=== PATIENT | female | born 1960 | race Caucasian/White ===

== ENCOUNTER → 2017-09-03 | Outpatient (CLI) | payer OTHER ==
[~2017-09-03] MED LIST: LEVOTHROID; MULTIVITAMINS; NORCO 5-325 TA1 EACH PO; PREMARIN0.9 MG PO
--- NOTE | 2017-09-03 14:56 | 2DMMODE ---
[place] [address] 2 D/M-MODE ECHOCARDIOGRAM Name: BULMARO SANDERS Room: [facility]#: [id number] Admission: 09/03/17 Attend Phys: Gregg Magana, Discharge: Date of : 56 Date of Service: 09/03/17 1455 Report #: [id number] THIS REPORT FOR: //name// APPROVED REPORT Study performed: 09/03/2017 13:16:45 EXAM: Comprehensive 2D, Doppler, and color-flow Echocardiogram Patient Location: Out-Patient Status: routine BSA: 2.06 HR: 90 bpm BP: 110/62 mmHg Other Information Study Quality: Good Indications Murmur 2D Dimensions LVEF(%): 56.07 (>50%) IVSd: 11.58 (7-11mm) LVOT Diam: 20.67 (18-24mm) LVDd: 42.50 mm PWd: 11.58 (7-11mm) Ascending Ao: 27.56 (22-36mm) LVDs: 30.18 (25-40mm) Aortic Root: 25.46 mm Hartman's LVEF: 56.07 % Volumes Left Atrial Volume (Systole) LA ESV Index: 10.70 mL/m2 Aortic Valve AoV Peak Ishmael.: 1.25 m/s AO Peak Gr.: 6.22 mmHg LVOT Max P.75 mmHg AO Mean Gr.: 3.75 mmHg LVOT Mean P.41 mmHg LVOT Max V: 0.83 m/s AO V2 VTI: 22.53 cm LVOT Mean V: 0.54 m/s CORBIN (VTI): 2.39 cm2 LVOT V1 VTI: 16.03 cm Mitral Valve E/A Ratio: 0.81 MV Decel. Time: 263.14 [place] [address] 2 D/M-MODE ECHOCARDIOGRAM Name: BULMARO SANDERS Room: [facility]#: [id number] Admission: 09/03/17 Attend Phys: Gregg Magana, Discharge: Date of : 56 Date of Service: 09/03/17 1455 Report #: [id number] MV E Max Ishmael.: 0.66 m/s MV PHT: 76.31 ms MVA (PHT): 2.88 cm2 TDI E/Lateral E': 5.08 E/Medial E': 6.60 Medial E' Ishmael.: 0.10 m/s Lateral E' Ishmael.: 0.13 m/s Pulmonary Valve PV Peak Ishmael.: 1.24 m/s PV Peak Gr.: 6.19 mmHg Tricuspid Valve TR Peak Gr.: 16.47 mmHg RVSP: 21.47 mmHg Left Ventricle The left ventricle is normal size. There is normal LV segmental wall motion. Mild concentric left ventricular hypertrophy. Left ventricular systolic function is normal. The left ventricular ejection fraction is within the normal range. LVEF is 55-60%. Grade I - abnormal relaxation pattern. Right Ventricle The right ventricle is normal size. The right ventricular systolic function is normal. Atria The left atrium size is normal. The right atrium size is normal. Aortic Valve The aortic valve is normal in structure. No aortic regurgitation is present. There is no aortic valvular stenosis. Mitral Valve The mitral valve is normal in structure. There is no mitral valve regurgitation noted. No evidence of mitral valve stenosis. Tricuspid Valve The tricuspid valve is normal in structure. Mild tricuspid regurgitation. The RVSP is _21.5 mmHg. Pulmonic Valve The pulmonary valve is normal in structure. There is no pulmonic [place] [address] 2 D/M-MODE ECHOCARDIOGRAM Name: BULMARO SANDERS Room: [facility]#: [id number] Admission: 09/03/17 Attend Phys: Gregg Magana, Discharge: Date of : 56 Date of Service: 09/03/17 1455 Report #: [id number] Great Vessels The aortic root is normal in size. IVC is normal in size and collapses with >50% inspiration Pericardium There is no pericardial effusion. <Conclusion> Mild concentric left ventricular hypertrophy. LVEF is 55-60%. <ELECTRONICALLY SIGNED> By: Adalberto Elena MD, FACC 09/03/17 1455 1455 1455 Adalberto Elena MD, FACC /INF
== END ==
LOC: M.CRD 13:00
DX: I51.7 Cardiomegaly (principal)

== ENCOUNTER → 2018-02-09 | Outpatient (CLI) | payer OTHER | LOC: M.ULTRA 01-30 09:28 → M.RAD 13:20 → M.ULTRA 13:30 | DX: Z12.31 Encounter for screening mammogram for malignant neoplasm of breast (principal); M81.0 Age-related osteoporosis without current pathological fracture; R59.0 Localized enlarged lymph nodes; E03.9 Hypothyroidism, unspecified ==

== ENCOUNTER → 2018-02-10 | Outpatient (CLI) | payer OTHER | LOC: M.RAD 13:59 | DX: M85.89 Other specified disorders of bone density and structure, multiple sites (principal); M81.0 Age-related osteoporosis without current pathological fracture; Z78.0 Asymptomatic menopausal state ==

== ENCOUNTER → 2018-04-03 | Outpatient (CLI) | payer OTHER | LOC: M.CT 03-16 09:00 | DX: Z13.6 Encounter for screening for cardiovascular disorders (principal) ==

== ENCOUNTER 2020-11-06 07:26 | Emergency (ER) | payer OTHER ==
[~2020-11-06] VITALS: Ht 167.6 cm; Wt 79.4 kg
[2020-11-06] MEDS ORDERED: LIPITOR40 MG PO (07:43)
[2020-11-06] MEDS ORDERED: ALENDRONATE SODI5 MG PO (07:43)
[2020-11-06 07:47] LABS: ABSOLUTE EOSINOPHILS 0.4 thou/uL (0.0-0.7); ABSOLUTE LYMPHOCYTES 1.7 thou/uL (0.8-5.3); ABSOLUTE MONOCYTES 0.7 thou/uL (0.0-1.2); BASOPHILS 0.4 %; EOSINOPHILS 5.4 %; HEMATOCRIT 39.2 % (37.0-47.0); HEMOGLOBIN 13.2 gm/dL (12.0-15.0); LYMPHOCYTES 24.9 %; MCH 31.4 pg (26.0-34.0); MCHC 33.7 g/dL (28.0-37.0); MCV 93.1 fL (80.0-100.0); MONOCYTES 10.1 %; NUCLEATED RBCS 0 /100WBC; PLATELET COUNT* 301 thou/uL (150-400); POLYS 59.2 %; RBC 4.21 mil/uL (4.20-5.00); RDW-CV 13.3 % (10.5-14.5); WBC 6.7 thou/uL (4.0-11.0)
[2020-11-06 07:58] LABS: CALCIUM 8.6 mg/dL (8.5-10.1); CREATININE 0.6 mg/dL (0.6-1.3); POTASSIUM 3.5 mmol/L (3.5-5.1)
[2020-11-06 08:09] LABS: ALBUMIN 3.5 g/dL (3.4-5.0); MAGNESIUM 2.2 mg/dL (1.8-2.4); TOTAL BILIRUBIN 0.4 mg/dL (<0.1-1.0); TOTAL PROTEIN 7.7 g/dL (6.4-8.2)
[2020-11-06] MEDS ORDERED: FLEXERIL PO (10:27)
[2020-11-06 10:46] VITALS: BP 124/59
--- NOTE | 2020-11-06 15:29 | EKG ---
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1960 Requested By: Jose Manuel Heart Order Number: [id number] MD: Karsten Rodarte Measurements Intervals [place] Rate: 67 P: 15 NC: 174 QRS: -9 QRSD: 100 T: 12 QT: 382 QTc: 404 Interpretive Statements Sinus rhythm Probable left atrial enlargement RSR' in V1 or V2, probably normal variant Left ventricular hypertrophy Baseline wander in lead(s) I,III,aVR,aVL Compared to ECG 08/28/2007 01:41:32 RSR' in V1 or V2 now present Left ventricular hypertrophy now present Electronically Signed On 11-06-2020 15:28:59 CDT by Karsten Rodarte [email or web address] <ELECTRONICALLY SIGNED> By: Karsten Rodarte MD, [facility] 11/06/20 1528 0732 0732 Karsten Rodarte MD, [facility] /EPI
--- NOTE | 2020-11-06 15:30 | EKG ---
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1960 Requested By: Jose Manuel Heart Order Number: [id number] MD: Karsten Rodarte Measurements Intervals [address] Rate: 58 P: -8 RI: 182 QRS: -12 QRSD: 106 T: 2 QT: 414 QTc: 407 Interpretive Statements Sinus rhythm Left ventricular hypertrophy Compared to ECG 11/06/2020 07:32:17 No significant changes Electronically Signed On 11-06-2020 15:30:14 CDT by Karsten Rodarte [email or web address] <ELECTRONICALLY SIGNED> By: Karsten Rodarte MD, [facility] 11/06/20 1530 0945 0945 Karsten Rodarte MD, [facility] /EPI
== END 2020-11-06 10:47 | disposition home or self-care (01) ==
LOC: M.ERS 07:26
PROVIDERS: Emergency Medicine Emergency Medical Services
DX: R07.89 Other chest pain (principal); E03.9 Hypothyroidism, unspecified; Z90.710 Acquired absence of both cervix and uterus

== ENCOUNTER → 2021-06-05 | Outpatient (CLI) | payer OTHER ==
[~2021-06-05] MED LIST changes: +ALENDRONATE SODI5 MG PO; +FLEXERIL PO; +LIPITOR40 MG PO
== END ==
LOC: M.RAD 08:54
PROVIDERS: ATTEND Nurse Practitioner Family
DX: M81.0 Age-related osteoporosis without current pathological fracture (principal)